=== PATIENT | male | born 1935 | race Caucasian/White ===

== ENCOUNTER → 2018-03-16 | Outpatient (CLI) | payer MEDICARE ==
[~2018-03-16] MED LIST: HYDACE5 PO
== END | disposition home or self-care (01) ==
LOC: LAB SHORT 10:26 → PLD 10:26
DX: D48.5 Neoplasm of uncertain behavior of skin (principal)
CPT/HCPCS: 88305

== ENCOUNTER → 2019-03-17 | Outpatient (CLI) | payer MEDICARE | END | disposition home or self-care (01) | LOC: LAB SHORT 09:31 → OLS 09:31 | DX: D48.5 Neoplasm of uncertain behavior of skin (principal) | CPT/HCPCS: 88305 ==

== ENCOUNTER → 2019-10-06 | Outpatient (CLI) | payer MEDICARE | END | disposition home or self-care (01) | LOC: PLD 11:36 → LAB SHORT 11:36 | DX: D48.5 Neoplasm of uncertain behavior of skin (principal) | CPT/HCPCS: 88305 ==

== ENCOUNTER → 2021-01-03 | Outpatient (CLI) | payer MEDICARE | END | disposition home or self-care (01) | LOC: LAB 08:57 → LAB SHORT 08:57 | DX: D48.5 Neoplasm of uncertain behavior of skin (principal) | CPT/HCPCS: 88305 ==

== ENCOUNTER 2021-06-07 20:22 | Inpatient (IN) | payer OTHER, MEDICARE ==
[~2021-06-07] VITALS: Ht 170.2 cm; Wt 72.6 kg
[2021-06-07] MEDS ORDERED: PROB500 PO ×2 (20:59)
[2021-06-07 21:14] LABS: BASOPHILS ABSOLUTE AUTO 0.07 K/mm3 (0.00-0.23); BASOPHILS PERCENT AUTO 1 % (0-2); EOSINOPHILS PERCENT AUTO 1 % (0-6); Hemoglobin 12.9 g/dL (13.5-17.5); IMMATURE GRAN ABSOLUTE AUTO 0.42 K/mm3 (0.00-0.10); IMMATURE GRAN PERCENT AUTO 4 % (0-1); LYMPHOCYTES ABSOLUTE AUTO 2.79 K/mm3 (0.84-5.20); LYMPHOCYTES PERCENT AUTO 25 % (21-46); MONOCYTES ABSOLUTE AUTO 1.05 K/mm3 (0.16-1.47); MONOCYTES PERCENT AUTO 9 % (4-13); Mean Corpuscular HGB 31.6 pg (26.0-34.0); Mean Corpuscular HGB Conc 33.1 g/dL (31.5-36.5); Mean Corpuscular Volume 96 fL (80-100); Mean Platelet Volume 10.4 fL (9.1-12.4); NEUTROPHILS ABSOLUTE AUTO 6.75 K/mm3 (1.96-9.15); NEUTROPHILS PERCENT AUTO 60 % (41-73); Platelet Count 201 K/mm3 (150-400); RDW Coefficient Variation 12.9 % (11.7-14.2); RDW Standard Deviation 45.2 fL (35.1-46.3); Red Blood Cell Count 4.08 M/mm3 (4.30-5.90); White Blood Cell Count 11.18 K/mm3 (4.00-11.30)
[2021-06-07 21:21] LABS: Anion Gap 11 mmol/L (6-16); Blood Urea Nitrogen 12 mg/dL (8-24); Bun/Creatinine Ratio 11.3 (12.0-20.0); CO2, Blood 24 mmol/L (21-32); Chloride, Blood 103 mmol/L (98-108); Creatinine, Blood 1.06 mg/dL (0.60-1.20); Glomerular Filtration Rate >60 (60-); Glucose, Blood 99 mg/dL (70-99); Potassium, Blood 3.8 mmol/L (3.5-5.5); Sodium, Blood 138 mmol/L (136-145)
[2021-06-07 21:59] LABS: Influenza A, PCR NEGATIVE (NEGATIVE); Influenza B, PCR NEGATIVE (NEGATIVE); Resp Syncytial Virus, PCR NEGATIVE (NEGATIVE); SARS-Cov-2 (COVID-19) PCR, MMC NEGATIVE (NEGATIVE)
--- NOTE | 2021-06-08 03:32 | NUR ---
PT ADMITTED TO 223 FROM THE ED. PT A/OX4, VSS. BELONGINGS AT BEDSIDE. BED LOCKED, ALARM ON AND IN LOWEST POSITION. CALL LIGHT AND BEDSIDE TABLE WITHIN REACH. WCTM
[2021-06-08] MEDS ORDERED: FINA5 PO (06:27)
[2021-06-08] MEDS ORDERED: Calcium Carbon500 MG PO (08:48)
--- NOTE | 2021-06-08 17:06 | NUR ---
pthas declined offers of pain medication reports he doesnt have pain unless he moves. pt will be npo after midnight for surgery in am. pt states he will drink fluids but declines any food as he does not want to use a bedpan. left leg shortened and externally rotated with sensation and pulses intact, pt able to wiggle toes when asked to do so. capillary refill less than 3 seconds
--- NOTE | 2021-06-08 18:29 | NUR ---
1814 RESTLESS, UNDRESSING SELF STATES NEEDS HELP TO STAND UP SO HE Cn get dressed and go home. pt oreinted to self. pt cursing and striking out when attempted to reposition. pt moved to room 213 for closer observation, pt medicated with fentanyl for pain
--- NOTE | 2021-06-08 18:59 | NUR ---
pt called on telephone confused asking his to bring him clothes and get him out of here. i spoke with patients to update her on patients status. discussed with that surgery is planned for 1000 tomorrow. pts given our contact phone number
--- NOTE | 2021-06-08 22:50 | NUR ---
PT CONFUSED AT START OF SHIFT. A/OX3 WITH SHORT TERM MEMORY LOSS. PT TRYING TO GET OUT OF BED. ANNETTE BYNUM CALLED AND ORDERED X1 DOSE OF HALDOL. PT NOW RESTING. PT NPO SINCE ADMISSION FOR POSSIBLE SURGERY. RESTING HR 110-120. ANNETTE BYNUM MADE AWARE AND ORDERED FLUIDS. ADMINISTERED TO PT. WCTM
--- NOTE | 2021-06-09 00:08 | NUR ---
PT AGITATED AT THIS TIME. A/OX1. HOUSE DR MADE AWARE. ORDERS FOR X1 DOSE OF ZYPREXA. WILL ADMINISTER TO PT. SEE EMAR. ALSO ORDERS TO BS PT ONCE SEDATED AND TO SC >400.
--- NOTE | 2021-06-09 01:55 | NUR ---
PT A/OX1. PT REMOVED IV. AGITATED AND REFUSING NEW IV PLACEMENT. UNABLE TO INFUSE LR AT THIS TIME. BS IS NOT >400.
[2021-06-09 04:58] LABS: BASOPHILS ABSOLUTE AUTO 0.06 K/mm3 (0.00-0.23); BASOPHILS PERCENT AUTO 0 % (0-2); EOSINOPHILS ABSOLUTE AUTO 0.01 K/mm3 (0.00-0.68); EOSINOPHILS PERCENT AUTO 0 % (0-6); Hematocrit 41.2 % (37.0-53.0); Hemoglobin 13.7 g/dL (13.5-17.5); IMMATURE GRAN PERCENT AUTO 2 % (0-1); LYMPHOCYTES ABSOLUTE AUTO 1.68 K/mm3 (0.84-5.20); LYMPHOCYTES PERCENT AUTO 12 % (21-46); MONOCYTES PERCENT AUTO 11 % (4-13); Mean Corpuscular HGB 31.6 pg (26.0-34.0); Mean Corpuscular HGB Conc 33.3 g/dL (31.5-36.5); Mean Corpuscular Volume 95 fL (80-100); Mean Platelet Volume 10.2 fL (9.1-12.4); NEUTROPHILS ABSOLUTE AUTO 10.64 K/mm3 (1.96-9.15); NEUTROPHILS PERCENT AUTO 74 % (41-73); Platelet Count 159 K/mm3 (150-400); RDW Coefficient Variation 12.9 % (11.7-14.2); RDW Standard Deviation 45.5 fL (35.1-46.3); Red Blood Cell Count 4.34 M/mm3 (4.30-5.90); White Blood Cell Count 14.29 K/mm3 (4.00-11.30)
[2021-06-09 05:38] LABS: Albumin, Blood 2.7 g/dL (3.4-5.0); Anion Gap 9 mmol/L (6-16); Blood Urea Nitrogen 17 mg/dL (8-24); Bun/Creatinine Ratio 18.5 (12.0-20.0); CO2, Blood 25 mmol/L (21-32); Calcium, Blood 9.3 mg/dL (8.5-10.1); Chloride, Blood 103 mmol/L (98-108); Creatinine, Blood 0.92 mg/dL (0.60-1.20); Glomerular Filtration Rate >60 (60-); Glucose, Blood 115 mg/dL (70-99); Phosphorus, Blood 2.7 mg/dL (2.5-4.9); Potassium, Blood 4.5 mmol/L (3.5-5.5); Sodium, Blood 137 mmol/L (136-145)
--- NOTE | 2021-06-09 05:50 | NUR ---
PATIENT BS 418. SC FOR 350CC'S IS DARK YELLOW URINE. PATIENT COMFORTABLE IN BED AT THIS TIME. TM
--- NOTE | 2021-06-09 13:01 | NUR ---
RETURN FROM PACU PATIENT RETURNED TO ROOM AT 1230 FROM PACU. DROWSY BUT RESPONDS TO VERBAL STIMULATION WITH ANGERY SHOUT. PUSHES NURSE AWAY. GRIMACE WITH EYES SHUT. VSS WITH O2 VIA NC AT 3L. THICK MUCUS IN UPPER AIRWAY. SUCTIONING PRN. IV FLUIDS RUNNING. 3 GAUZE DRESSINGS TO LEFT HIP. PEDAL PULSES STRONG BILAT. SPOUSE IN ROOM. PATIENT RESTING AT THIS TIME.
--- NOTE | 2021-06-09 17:07 | NUR ---
SHIFT SUMMARY PATIENT CONFUSED, ANXIOUS, AND HALLUCINATING AT BEGINNING OF SHIFT. WENT FOR SURGICAL REPAIR OF LEFT HIP FRACTURE WITH DR SANTOS. RETURNED TO ROOM AT 1230. SLEPT ALL AFTERNOON WITH OCC WAKEFULNESS TO VERBAL STIMULATION. VSS WITH SOMEWHAT LOW BP SYSTOLIC ABOUT 100. SUPP O2 VIA NC AT 3L. THICK MUCUS IN UPPER AIRWAY AND MOUTH, SUCTIONING PRN. NOT AWAKE ENOUGH FOR PO INTAKE. REPOSITIONED IN BED. 3 GAUZE DRESSING C/D/I TO LEFT HIP. ATTENDS DRY AT THIS TIME. IV FLUIDS AND ABX RUNNING. RESTING IN BED AT THIS TIME. WILL REPORT TO CERTIFIED RETINAL ANGIOGRAPHER RN.
--- NOTE | 2021-06-10 06:11 | NUR ---
PATIENT ALERT ABLE TO ANSWER QUESTIONS. TOLERATED PO FLUIDS AT BEDSIDE. CIWA RATING #3. HAD LARGE VOID, BLADDER SCANNED FOR 138. SLEPT WELL THROUGH NIGHT. DENIES PAIN OR DISCOMFORT. DRSSING TO LEFT HIP CLEAN DRY AND INTACT, SAFETY MAINTAINED.
[2021-06-10 09:25] LABS: BASOPHILS ABSOLUTE AUTO 0.03 K/mm3 (0.00-0.23); BASOPHILS PERCENT AUTO 0 % (0-2); EOSINOPHILS ABSOLUTE AUTO 0.02 K/mm3 (0.00-0.68); EOSINOPHILS PERCENT AUTO 0 % (0-6); Hemoglobin 9.4 g/dL (13.5-17.5); IMMATURE GRAN ABSOLUTE AUTO 0.36 K/mm3 (0.00-0.10); IMMATURE GRAN PERCENT AUTO 3 % (0-1); LYMPHOCYTES ABSOLUTE AUTO 1.37 K/mm3 (0.84-5.20); LYMPHOCYTES PERCENT AUTO 11 % (21-46); MONOCYTES ABSOLUTE AUTO 1.52 K/mm3 (0.16-1.47); MONOCYTES PERCENT AUTO 12 % (4-13); Mean Corpuscular HGB 32.2 pg (26.0-34.0); Mean Corpuscular HGB Conc 33.6 g/dL (31.5-36.5); Mean Corpuscular Volume 96 fL (80-100); Mean Platelet Volume 10.3 fL (9.1-12.4); NEUTROPHILS ABSOLUTE AUTO 9.39 K/mm3 (1.96-9.15); NEUTROPHILS PERCENT AUTO 74 % (41-73); Platelet Count 155 K/mm3 (150-400); RDW Coefficient Variation 13.2 % (11.7-14.2); RDW Standard Deviation 46.7 fL (35.1-46.3); Red Blood Cell Count 2.92 M/mm3 (4.30-5.90); White Blood Cell Count 12.69 K/mm3 (4.00-11.30)
[2021-06-10 09:34] LABS: Anion Gap 4 mmol/L (6-16); Blood Urea Nitrogen 24 mg/dL (8-24); Bun/Creatinine Ratio 23.3 (12.0-20.0); CO2, Blood 30 mmol/L (21-32); Calcium, Blood 8.7 mg/dL (8.5-10.1); Chloride, Blood 107 mmol/L (98-108); Creatinine, Blood 1.03 mg/dL (0.60-1.20); Glomerular Filtration Rate >60 (60-); Glucose, Blood 124 mg/dL (70-99); Phosphorus, Blood 3.2 mg/dL (2.5-4.9); Potassium, Blood 4.4 mmol/L (3.5-5.5); Sodium, Blood 141 mmol/L (136-145)
--- NOTE | 2021-06-10 10:11 | NUR ---
PT WILL DESAT WHILE SLEEPING DOWN INTO THE 80'S. HE RECOVERS ONCE AWAKENED AND STAYS IN THE MID 90'S ON ROOM AIR. PT FINALLY ALLOWED THIS RN TO PLACE NASAL CANULA HE HAD BEEN REFUSING EARLIER. NOTIFIED DR. ALVARADO. SHE WOULD LIKE HIM ON A CPAP WHILE SLEEPING IF HE ALLOWS. REFUSED AM MEDS THIS MORNING. CURRENTLY ON 2L NASAL CANULA SATS REMAINING IN THE 90'S WITH NO DESATS.
--- NOTE | 2021-06-10 11:58 | NUR ---
PT UP TO CHAIR WITH 2 MAX ASSIST PT UNABLE TO FOLLOW DIRECTIONS WITH TRANSFER AND NWB STATUS. ATTEMPTED TO EDUCATE ON WALKER USE. AT BEDSIDE.
--- NOTE | 2021-06-10 17:55 | NUR ---
SHIFT SUMMARY. PT MORE ALERT AND ORIENTED X4 THIS AFTERNOON AFTER GETTING UP INTO THE CHAIR. ABLE TO REMEMBER STAFF NAMES, LOCATION AND DATE. PLEASANT AND COOPERATIVE. VERY WEAK WITH TRANSFERS, REQUIRES 2 MAX FROM CHAIR TO BED. DIFFICULT TO CHIEF MATE IN WALKER USE. USING CALL LIGHT APPROPRIATLY, CONTINENT OF VOID IN URINAL. PLAN WILL BE TO CONTINUE WORKING WITH PT/OT
--- NOTE | 2021-06-10 20:57 | NUR ---
PT A/O X4, VSS. NO IV NOTED UPON ASSESSMENT. PT REFUSING NEW IV PLACEMENT. PT EDUCATED THAT IV'S ARE IMPORTANT AND NEEDED IN CASE OF AN EMERGENCY. PT STILL REFUSING AT THIS TIME. WILL PASS ONTO NEXT RN.
--- NOTE | 2021-06-11 04:29 | NUR ---
SHIFT SUMMARY PT A/OX4 WITH TIMES OF FORGETFULNESS. VSS. BM SMEAR X1 IN BRIEF. BLANCHABLE REDNESS TO COCCYX. MEPILEX APPLIED. Q2 TURNS. PT STILL REFUSING NEW IV PLACEMENT AT THIS TIME. 2L NC, + FOR COUGH, EDUCTATED ON IMPORTANCE OF IS USAGE TO DECREASE CHANCE OF PNEUMONIA. AQUACEL TO L HIP C/D/I. WCTM
[2021-06-11 08:37] LABS: BASOPHILS ABSOLUTE AUTO 0.04 K/mm3 (0.00-0.23); BASOPHILS PERCENT AUTO 0 % (0-2); EOSINOPHILS ABSOLUTE AUTO 0.16 K/mm3 (0.00-0.68); EOSINOPHILS PERCENT AUTO 2 % (0-6); Hematocrit 25.7 % (37.0-53.0); Hemoglobin 8.4 g/dL (13.5-17.5); IMMATURE GRAN ABSOLUTE AUTO 0.35 K/mm3 (0.00-0.10); IMMATURE GRAN PERCENT AUTO 4 % (0-1); LYMPHOCYTES ABSOLUTE AUTO 1.75 K/mm3 (0.84-5.20); LYMPHOCYTES PERCENT AUTO 18 % (21-46); MONOCYTES ABSOLUTE AUTO 1.01 K/mm3 (0.16-1.47); MONOCYTES PERCENT AUTO 11 % (4-13); Mean Corpuscular HGB 32.1 pg (26.0-34.0); Mean Corpuscular HGB Conc 32.7 g/dL (31.5-36.5); Mean Corpuscular Volume 98 fL (80-100); Mean Platelet Volume 10.5 fL (9.1-12.4); NEUTROPHILS ABSOLUTE AUTO 6.26 K/mm3 (1.96-9.15); NEUTROPHILS PERCENT AUTO 65 % (41-73); Platelet Count 141 K/mm3 (150-400); RDW Coefficient Variation 13.3 % (11.7-14.2); RDW Standard Deviation 47.3 fL (35.1-46.3); Red Blood Cell Count 2.62 M/mm3 (4.30-5.90); White Blood Cell Count 9.57 K/mm3 (4.00-11.30)
[2021-06-11 09:48] LABS: Anion Gap 5 mmol/L (6-16); Blood Urea Nitrogen 24 mg/dL (8-24); Bun/Creatinine Ratio 23.1 (12.0-20.0); CO2, Blood 31 mmol/L (21-32); Calcium, Blood 8.6 mg/dL (8.5-10.1); Chloride, Blood 107 mmol/L (98-108); Creatinine, Blood 1.04 mg/dL (0.60-1.20); Glomerular Filtration Rate >60 (60-); Glucose, Blood 95 mg/dL (70-99); Phosphorus, Blood 2.5 mg/dL (2.5-4.9); Potassium, Blood 4.2 mmol/L (3.5-5.5); Sodium, Blood 143 mmol/L (136-145)
--- NOTE | 2021-06-11 17:19 | NUR ---
SHIFT SUMMARY PT IS POD#2 FROM L HIP REPAIR. PT IS ALERT AND ORIENTED TODAY. PAIN MANAGED WITH TYLENOL AND ULTRAM. PT REPORTED FEELING CONFUSED AFTER TAKING ULTRAM, CONFUSION WAS NOT OBSERVED BY STAFF. PT IS A 2 ASSIST WITH GAIT BELT AND WALKER FOR TRANSFERS. FAMILY PRESENT FOR SUPPORT TODAY. POSSIBLE DISCHARGE TO [facility] TOMORROW. VSS. WILL MONITOR UNTIL REPORT TO YOVANNY RN.
--- NOTE | 2021-06-12 04:09 | NUR ---
SHIFT SUMMARY PT A/O X4, VSS. VOIDING WITHOUT COMPLICATION. Q2 TURNS. MEPILEX TO COCCYX C/D/I. AQUACEL TO HIP WITH LITTLE SHADOWING. PAIN CONTROLLED WITH ORAL MEDICATIONS. WCTM
--- NOTE | 2021-06-12 05:18 | NUR ---
ROUGHLY AT 0445 PT A/OX1, FOUND REMOVING LINES AND GOWN. CIWA 13. REFUSING VITALS. MEDICAITONS GIVEN PER EMAR. PT NOW RESTING IN BED, A/OX3. REPOSITIONED. VSS. WILL REASSESS CIWA SCORE. WCTM
--- NOTE | 2021-06-12 14:31 | NUR ---
06/12/21 1431 Eileen Gomez VERIFICATIONS: EDIT CHART.
--- NOTE | 2021-06-12 18:37 | NUR ---
SHIFT SUMMARY PT POD #2 FOR L HIP RODDING. PT VERY TIRED THIS SHIFT AND DID NOT WAKE UP UNTIL LATE AFTERNOON. UNABLE TO TAKE MORNING MEDICATIONS DUE TO NOT BEING ABLE TO STAY AWAKE. WORKED WITH PHYSICAL THERAPY AND UP WITH A 2 MAX ASSIST TO THE CHAIR. PT IS A VERY HEAVY LIFT. AQUACEL DRESSING CDI. WILL REPORT TO YOVANNY PARRA.
--- NOTE | 2021-06-13 06:49 | NUR ---
Pt ramains in bed throughout the night and is resting comfortably. Denies pain or discomfort. He is alert and oriented, medictaed as indicated. Assisted with care and ADLs, assisted with bathroom and toileting needs, assisted with positioning to enhance comfort. Dry surgical on left hip at the incision site is patent. Pt was given his call mcknight and encouraged to call for help when assistance is needed as he is monitored.
[2021-06-13 09:28] LABS: Albumin, Blood 2.3 g/dL (3.4-5.0); Anion Gap 8 mmol/L (6-16); Blood Urea Nitrogen 25 mg/dL (8-24); Bun/Creatinine Ratio 23.8 (12.0-20.0); CO2, Blood 30 mmol/L (21-32); Calcium, Blood 8.9 mg/dL (8.5-10.1); Chloride, Blood 103 mmol/L (98-108); Creatinine, Blood 1.05 mg/dL (0.60-1.20); Glomerular Filtration Rate >60 (60-); Glucose, Blood 122 mg/dL (70-99); Magnesium, Blood 1.9 mg/dL (1.6-2.4); Phosphorus, Blood 3.8 mg/dL (2.5-4.9); Potassium, Blood 4.1 mmol/L (3.5-5.5); Sodium, Blood 141 mmol/L (136-145)
[2021-06-13 10:09] LABS: Hematocrit 28.4 % (37.0-53.0); Hemoglobin 9.1 g/dL (13.5-17.5); Mean Corpuscular HGB 31.8 pg (26.0-34.0); Mean Corpuscular Volume 99 fL (80-100); Mean Platelet Volume 10.7 fL (9.1-12.4); Platelet Count 200 K/mm3 (150-400); RDW Coefficient Variation 13.2 % (11.7-14.2); RDW Standard Deviation 48.4 fL (35.1-46.3); Red Blood Cell Count 2.86 M/mm3 (4.30-5.90); White Blood Cell Count 9.06 K/mm3 (4.00-11.30)
[2021-06-13 10:14] LABS: BAND PERCENT MAN 2 % (0-8); BASOPHILS PERCENT MAN 0 % (0-2); EOSINOPHILS PERCENT MAN 0 % (0-6); LYMPHOCYTES ABSOLUTE MAN 2.08 K/mm3 (0.84-5.20); LYMPHOCYTES PERCENT MAN 23 % (21-46); METAMYELOCYTE ABSOLUTE MAN 0.27 K/mm3 (0.00-0.00); METAMYELOCYTE PERCENT MAN 3 % (0-0); MONOCYTES ABSOLUTE MAN 0.72 K/mm3 (0.16-1.47); MONOCYTES PERCENT MAN 8 % (4-13); MYELOCYTE ABSOLUTE MAN 0.27 K/mm3 (0.00-0.00); MYELOCYTE PERCENT MAN 3 % (0-0); SEG NEUTROPHILS PERCENT MAN 61 % (41-73); TOTAL CELLS COUNTED 100
--- NOTE | 2021-06-14 06:45 | NUR ---
PT IN BED AND IS RESTING IN STABLE CONDITION, NO PAIN, NO DISCOMFORT. ASSISTED WITH CARE AND ADLS, MEDICATED INDICATED. CALL MACKAY GIVEN TO HIM AND ENCOURAGED TO CALL FOR HELP WHEN ASSISTANCE IS NEEDED.
--- NOTE | 2021-06-14 15:41 | NUR ---
SHIFT SUMMARY PATIENT AOX4; VSS, PATIENT UP WITH MAX ASSIST X2 FROM BED TO COMMODE. PATIENT HAD SMALL BM ON SHIFT, GOOD U/O. TOLERATING PO INTAKE. PATIENT DENIES PAIN AND DOES NOT REQUIRE PRN PAIN MEDICATION.
--- NOTE | 2021-06-15 04:27 | NUR ---
SHIFT SUMMARY PT A/OX4, VSS. NO ACUTE EVENTS OVERNIGHT. L HIP AQUACELS INTACT WITH OLD SHADOWING. NO PAIN PER PATIENT.
--- NOTE | 2021-06-15 15:53 | NUR ---
SHIFT SUMMARY PT A&OX4, VSS/RA. AMB 1 PP MOD ASSIST WITH FWW/GB-UP IN ROOM WITH PT/OT, TO BSC. DECLAN PO. VOIDING WELL/URINAL, BM LARGE THIS SHIFT. POD6 LLE GAMMA NAIL, AQUACEL CHANGED TODAY. MEPILEX ON COCCYX CHANGED TODAY. WILL REPORT TO ONCOMING NOC RN.
--- NOTE | 2021-06-16 05:33 | NUR ---
ALERT AND ORIENTED X'4. CALM AND COOPERATIVE THROUGH NIGHT,DENIES PAIN OR DISCOMFORT. AQUACEL DRESSINGS CLEAN DRY AND INTACT TO LEFT HIP. 2 ASSIST FOR TRANSFERS WITH WALKER.INCONTINENT EPISODE OF BOWEL THIS AM. SLEPT IN LONG INTERVALS. SAFETY MAINTAINED, CALL MACKAY IN REACH.
--- NOTE | 2021-06-16 19:43 | NUR ---
SHIFT SUMMARY PAIN MANAGED WITH TYLENOL. PT HAS WORKED WITH THERAPY TODAY AND WAS ABLE TO TAKE SOME STEPS. PT IS MOSTLY A STAND AND PIVOT TRANSFER WITH 1-2 ASSIST. PT IS TOLERATING PO. PLAN FOR DISCHARGE TO SNF WHEN A BED IS AVALIABLE. VSS. WILL MONITOR UNTIL REPORT TO YOVANNY RN.
--- NOTE | 2021-06-17 05:15 | NUR ---
PT REMAINS ALERT AND ORIENTED X4, STARTLES EASILY, MAKES NO COMPLAINTS OF PAIN ALTHOUGH TREATED PER EMAR WITH SCHEDULED TYLENOL. L HIP DRESSING CDI. PT USES URINAL, CALLS APPROPRIATELY AND SLEPT MOST OF THE NIGHT. NO ACUTE CHANGES TO REPORT. WILL CONT TO MONITOR.
--- NOTE | 2021-06-17 18:05 | NUR ---
SHIFT SUMMARY PT IS WAITING FOR PLACMENT AT SNF, POSSIBLY TOMORROW. PT IS A 1 PERSON ASSIST WITH GAIT BELT AND WALKER FOR STAND PIVOT TRANSFERS. PAIN IS MANAGED WITH TYLENOL, PT DESCRIBES PAIN MILD AND STATES HIS L HIP IS "SORE." PT'S SPOUSE VISITED THIS EVENING. PT'S REPORTS DECREASED APPETITE BUT IS EATING APPROXIMATELY 50% OF HIS MEALS. VSS. WILL MONITOR UNTIL NOC FIDEL.
--- NOTE | 2021-06-18 05:22 | NUR ---
SHIFT SUMMARY POD8 L HIP FIXATION, AQUACEL X2 C/D/I. VSS. STAND BY ASSIST WITH FWW AND GB FROM CHAIR TO BED. RESTING COMFORTABLY THIS SHIFT, NO PAIN MEDICATIONS GIVEN. VOIDING WELL. WILL REPORT TO ONCOMING RN.
--- NOTE | 2021-06-18 17:49 | NUR ---
SHIFT SUMMARY PT A&OX4, VSS, POD9 LLE NAILING, JEFFERSON REMOVED TODAY, [address] SANTOS. DENIES PAIN. DENIES N&V/DECLAN PO, AMB SBA FWW & GB TO BSC/CHAIR/BED, VOIDING WELL, BM. PLAN FOR HOME WITH HOMEHEALTH, DC TOMORROW. WILL REPORT TO ONCJUSTEN HAIRSTON RN.
--- NOTE | 2021-06-19 03:49 | NUR ---
SHIFT SUMMARY A/OX3. RESTING WELL THIS SHIFT. POD9 L HIP ARTHROPLASTY, STERI STRIPS OVER INCISIONS C/D/I. AMBULATING WELL WITH FWW. NO PAIN REPORTED THIS SHIFT. VOIDING AND PASSING STOOL. TOLERATING PO INTAKE. PLAN TO DC HOME TODAY WITH HOME HEALTH. WILL REPORT TO ONCOMING RN.
[2021-06-19] MEDS ORDERED: QUET25 PO (11:36)
[2021-06-19] MEDS ORDERED: TRAM50 PO (11:37)
[2021-06-19] MEDS ORDERED: XARELTO10 M1 PO (12:49)
[2021-06-19] MEDS ORDERED: OMEPRAZOLE MAGN20 M1 PO (12:52)
--- NOTE | 2021-06-19 16:17 | NUR ---
Received referral from nurse career services manager (Porsche Sierra) on 06/19/2021. Patient is to discharge 06/19/2021 with orders for home health and elected [facility]. Contacted patient at number provided on demographic sheet to further discuss the above. Spoke with patient's (Frederick Tejada) who is agreeable to the above. Discussed homebound status definition with patient's . Patient's verbalized understanding. Discussed what home health is vs what it is not (in home caregivers/housekeeping). Patient's verbalized understanding. Discussed the next steps in the process of an initial assessment to determine frequency of visits. Again patient's verbalized understanding. Offered a chance for patient's to ask questions regarding the above of which there were none. Gathered all supporting documentation for referral (face sheet, face to face, med list, H&P, discharge summary, and most recent PT assessment) and sent to [facility] for review. No further interventions required. Edie Gordon Referral Liaison
--- NOTE | 2021-06-19 16:28 | NUR ---
DISCHARGE SUMMARY BROTH SETTER&OX4, VSS, LEFT FLOOR VIA WC WITH RN, TO GO HOME WITH AND DAUGHTER, WITH ALL PERSONAL POSSESSIONS INCLUDING DC PACKET. SCRIPTS FAXED TO [facility]. DC INSTRUCTIONS PROVIDED. PT AND FAMILY REP UNDERSTANDING THOSE INSTRUCTIONS INCLUDING HOME HEALTH/PT, FU WITH PCP AND SURGEON, OK TO SHOWER, LEAVE STERIS IN PLACE UNTIL THEY COME OFF ON THEIR OWN, XARELTO FOR 21 DAYS(START TOMORROW) AND CONTACT NUMBERS FOR DOCTORS AND RESOURCES.
== END 2021-06-19 14:00 | disposition home health service (06) | DRG 480 ==
LOC: ER 20:22 → SURS 20:23
PROVIDERS: Family Medicine; Orthopaedic Surgery; Student in an Organized Health Care Education/Training Program; ADMIT Internal Medicine
PROC: 0QS736Z Reposition Left Upper Femur with Intramedullary Internal Fixation Device, Percutaneous Approach (ICD-10-PCS; principal; 2021-06-09 09:45)
DX: S72.142A Displaced intertrochanteric fracture of left femur, initial encounter for closed fracture (principal); G92.8 Other toxic encephalopathy; Z20.822 Contact with and (suspected) exposure to COVID-19; D72.829 Elevated white blood cell count, unspecified; D63.8 Anemia in other chronic diseases classified elsewhere; K21.9 Gastro-esophageal reflux disease without esophagitis; F10.10 Alcohol abuse, uncomplicated; Z28.21 Immunization not carried out because of patient refusal; M10.9 Gout, unspecified; N40.0 Benign prostatic hyperplasia without lower urinary tract symptoms; Z88.0 Allergy status to penicillin; Z91.09 Other allergy status, other than to drugs and biological substances; Z79.899 Other long term (current) drug therapy; Z98.890 Other specified postprocedural states; Z90.49 Acquired absence of other specified parts of digestive tract; Z90.89 Acquired absence of other organs; W01.0XXA Fall on same level from slipping, tripping and stumbling without subsequent striking against object, initial encounter
CPT/HCPCS: 0241U; 36415; 73502; 80048; 80069; 83735; 85025; 93005; 93010; 94762; 96372; 96374; 96375; 97110; 97110-CQ; 97116; 97163; 97166; 97530; 97530-CQ; 97535; 99285-25; A9270; C1713; C9113; G0378; J0171; J0690; J1100; J1630; J1885; J2060; J2250; J2405; J2704; J3010; J7120

== ENCOUNTER 2022-03-16 12:29 | Inpatient (IN) | payer MEDICARE ==
[~2022-03-16] VITALS: Ht 167.6 cm; Wt 58.3 kg
[~2022-03-16 12:29] MED LIST changes: +Calcium Carbon500 MG PO; +FINA5 PO; +OMEPRAZOLE MAGN20 M1 PO; +PROB500 PO; +QUET25 PO; +TRAM50 PO; +XARELTO10 M1 PO
[2022-03-16 13:16] LABS: BASOPHILS ABSOLUTE AUTO 0.04 K/mm3 (0.00-0.23); BASOPHILS PERCENT AUTO 0 % (0-2); EOSINOPHILS ABSOLUTE AUTO 0.02 K/mm3 (0.00-0.68); EOSINOPHILS PERCENT AUTO 0 % (0-6); Hemoglobin 10.9 g/dL (13.5-17.5); IMMATURE GRAN ABSOLUTE AUTO 0.29 K/mm3 (0.00-0.10); IMMATURE GRAN PERCENT AUTO 2 % (0-1); LYMPHOCYTES ABSOLUTE AUTO 1.59 K/mm3 (0.84-5.20); LYMPHOCYTES PERCENT AUTO 11 % (21-46); MONOCYTES ABSOLUTE AUTO 1.19 K/mm3 (0.16-1.47); MONOCYTES PERCENT AUTO 9 % (4-13); Mean Corpuscular HGB 27.7 pg (26.0-34.0); Mean Corpuscular HGB Conc 31.1 g/dL (31.5-36.5); Mean Corpuscular Volume 89 fL (80-100); Mean Platelet Volume 10.2 fL (9.1-12.4); NEUTROPHILS PERCENT AUTO 78 % (41-73); Platelet Count 308 K/mm3 (150-400); RDW Coefficient Variation 13.2 % (11.7-14.2); RDW Standard Deviation 43.2 fL (35.1-46.3); Red Blood Cell Count 3.94 M/mm3 (4.30-5.90); White Blood Cell Count 13.93 K/mm3 (4.00-11.30)
[2022-03-16 13:21] LABS: Albumin, Blood 1.9 g/dL (3.4-5.0); Albumin/Globulin Ratio 0.4 (0.8-1.8); Bilirubin, Total 0.4 mg/dL (0.1-1.0); Bun/Creatinine Ratio 25.8 (12.0-20.0); Calcium, Blood 13.4 mg/dL (8.5-10.1); Creatinine, Blood 1.94 mg/dL (0.60-1.20); Globulin, Blood 5.1 g/dL (2.2-4.0); Potassium, Blood 4.3 mmol/L (3.5-5.5)
[2022-03-16 14:14] LABS: Magnesium, Blood 2.2 mg/dL (1.6-2.4)
--- NOTE | 2022-03-16 17:01 | NUR ---
Patient admitted for failure to thrive, poor PO intake & weight loss. Patient said he doesn't feel well, and doesn't want to eat. NC oxygen 2lpm, afebrile, vitals stable. Shallow respirations, lung sounds diminished RLL. SBAx1 when walking to the bathroom, patient needs directions on how to safely use FWW. MD assessed patient at bedside, discussed code status, patient requested to be DNR. Pulmonary consult ordered.
--- NOTE | 2022-03-17 04:19 | NUR ---
SHIFT SUMMARY 86 YR M ADMITTED ON 03/16/22 FOR FAILURE TO THRIVE. DNR. RT SAW PT AT APPROX 0100 AND STATED TO THIS NURSE THAT HE WAS DESATING TO 80'S WITH NASAL CANULA AND 2 LITERS 02. RT PUT IN AN ORDER FOR AND GAVE PT A BREATHING TX AFTER WHICH PT STATED THAT HE FELT BETTER. PT WAS ABLE TO SLEEP FOR MOST OF THIS SHIFT BUT DID CALL APPROPRIATELY AT LEAST TWICE ASKING FOR HELP W/ URINAL. HE IS A&O X 3 BUT APPEARS TO BE SLIGHTLY CONFUSED AT TIMES. HE IS A PLEASANT PERSON AND IS COOPERATIVE WITH HIS CARE.
[2022-03-17 06:02] LABS: BASOPHILS ABSOLUTE AUTO 0.05 K/mm3 (0.00-0.23); BASOPHILS PERCENT AUTO 0 % (0-2); EOSINOPHILS ABSOLUTE AUTO 0.03 K/mm3 (0.00-0.68); EOSINOPHILS PERCENT AUTO 0 % (0-6); Hematocrit 32.7 % (37.0-53.0); Hemoglobin 10.4 g/dL (13.5-17.5); IMMATURE GRAN PERCENT AUTO 2 % (0-1); LYMPHOCYTES ABSOLUTE AUTO 1.54 K/mm3 (0.84-5.20); LYMPHOCYTES PERCENT AUTO 12 % (21-46); MONOCYTES ABSOLUTE AUTO 1.13 K/mm3 (0.16-1.47); MONOCYTES PERCENT AUTO 9 % (4-13); Mean Corpuscular HGB 28.5 pg (26.0-34.0); Mean Corpuscular HGB Conc 31.8 g/dL (31.5-36.5); Mean Corpuscular Volume 90 fL (80-100); Mean Platelet Volume 10.5 fL (9.1-12.4); NEUTROPHILS PERCENT AUTO 76 % (41-73); Platelet Count 262 K/mm3 (150-400); RDW Coefficient Variation 13.3 % (11.7-14.2); RDW Standard Deviation 43.8 fL (35.1-46.3); Red Blood Cell Count 3.65 M/mm3 (4.30-5.90); White Blood Cell Count 12.55 K/mm3 (4.00-11.30)
[2022-03-17 06:31] LABS: Bun/Creatinine Ratio 24.6 (12.0-20.0); Calcium, Blood 12.4 mg/dL (8.5-10.1); Creatinine, Blood 1.83 mg/dL (0.60-1.20)
--- NOTE | 2022-03-17 17:38 | NUR ---
DAYSHIFT SUMMARY Patient AOx3, calls appropriately for help. Continues to have poor appetite, NS infusing. Patient removed NC several times today, provided education on importance of wearing oxygen. Molding Process Technician came and discussed Lung Cancer diagnosis with patient and family. Patient/family deciding if they want to pursue diagnostic testing. Serum Calcium is 12.4, Miacalcin injection administred. IV ABX administred. Vitals stable, afebrile, sats stable on 2L oxygen. Will continue to monitor.
--- NOTE | 2022-03-17 18:41 | NUR ---
Patient/family decided to have thorancentesis, RN notified Technology Professional. MD will be here tomorrow morning to discuss procedure with patient/family.
--- NOTE | 2022-03-17 19:15 | NUR ---
Assisted patient to BS, 2x staff assist with gaitbelt & FWW. Earlier today pateint used bathroom, but the grab bars are too high for patient to hold on to to stand up, pateint does not safely use walker, walks with the FWW too far infront of him. This evening used the bedside commode, patient had difficulty stand-pivoting to commode, he will turn the FWW but does not move his legs. Staff had to help guide patient to safely sit on commode.
--- NOTE | 2022-03-18 01:52 | NUR ---
SNOWMAKER SUMMARY PT AOX/3. PT RESTING IN BED T/O THE NIGHT. PATIENT NEEDED ENCOURAGMENT TO ALLOW FOR EVENING ASSESSMENT AND MED PASS WHICH INCLUDED INJECTION OF CALCITONIN FOR ELEVATED CALCIUM. PT IS ON 2L O2 VIA NC; PT HAS BEEN INTERMITTANTLY REFUSING TO WEAR NC DUE TO DISCOMFORT. PT STATES HE IS TIRED OF PROCEDURES; EXPRESSING HOPELESSNESS. PT SOB W/EXERTION. CALL LIGHT IN REACH.
[2022-03-18 04:47] LABS: BASOPHILS ABSOLUTE AUTO 0.06 K/mm3 (0.00-0.23); BASOPHILS PERCENT AUTO 0 % (0-2); EOSINOPHILS ABSOLUTE AUTO 0.02 K/mm3 (0.00-0.68); EOSINOPHILS PERCENT AUTO 0 % (0-6); Hematocrit 37.9 % (37.0-53.0); Hemoglobin 11.7 g/dL (13.5-17.5); IMMATURE GRAN ABSOLUTE AUTO 0.32 K/mm3 (0.00-0.10); IMMATURE GRAN PERCENT AUTO 2 % (0-1); LYMPHOCYTES ABSOLUTE AUTO 1.44 K/mm3 (0.84-5.20); LYMPHOCYTES PERCENT AUTO 9 % (21-46); MONOCYTES ABSOLUTE AUTO 1.12 K/mm3 (0.16-1.47); MONOCYTES PERCENT AUTO 7 % (4-13); Mean Corpuscular HGB 27.5 pg (26.0-34.0); Mean Corpuscular HGB Conc 30.9 g/dL (31.5-36.5); Mean Corpuscular Volume 89 fL (80-100); Mean Platelet Volume 10.2 fL (9.1-12.4); NEUTROPHILS ABSOLUTE AUTO 12.45 K/mm3 (1.96-9.15); NEUTROPHILS PERCENT AUTO 81 % (41-73); Platelet Count 303 K/mm3 (150-400); RDW Coefficient Variation 13.3 % (11.7-14.2); RDW Standard Deviation 43.2 fL (35.1-46.3); Red Blood Cell Count 4.25 M/mm3 (4.30-5.90); White Blood Cell Count 15.41 K/mm3 (4.00-11.30)
[2022-03-18 05:15] LABS: Albumin, Blood 1.9 g/dL (3.4-5.0); Anion Gap 5 mmol/L (6-16); Blood Urea Nitrogen 40 mg/dL (8-24); Bun/Creatinine Ratio 23.5 (12.0-20.0); CO2, Blood 30 mmol/L (21-32); Calcium, Blood 12.7 mg/dL (8.5-10.1); Chloride, Blood 106 mmol/L (98-108); Glomerular Filtration Rate 39 (60-); Glucose, Blood 120 mg/dL (70-99); Phosphorus, Blood 3.3 mg/dL (2.5-4.9); Potassium, Blood 4.1 mmol/L (3.5-5.5); Sodium, Blood 141 mmol/L (136-145); Vancomycin, Random 8.7 ug/mL
--- NOTE | 2022-03-18 11:09 | NUR ---
Upon receiving a referral for spiritual care, I visit pt. Pt is lying in bed and not deeply engaged in conversation. Family member (possibly pt's son), Ulisses is bedside. Ulisses tells me about the pt's symptoms and new diagnosis of lung cancer. Pt is agreeable to prayer. I gladly provide prayer. following the prayer. Pt becomes much more vocal and voices his gratitude for the prayer and asks that I remember him and his family in my prayers going forward. Both pt and Ulisses show signs of being comforted. I will continue to remain available to pt and family.
[2022-03-18 13:13] LABS: International Normalized Ratio 1.26
[2022-03-18 13:37] LABS: SARS-Cov-2 (COVID-19) PCR, MMC NEGATIVE (NEGATIVE)
[2022-03-18 15:26] LABS: Automated BF RBC Count 0.019 M/mm3 (0-0); Automated BF WBC Count 0.899 K/mm3 (0-999)
[2022-03-18 15:27] LABS: Body Fluid WBC Count 899 /mm3 (0-999); RBC Count, Body Fluid 19000 /mm3 (0-0)
[2022-03-18 15:41] LABS: Appearance, Body Fluid Hazy (Clear); Color, Body Fluid Amber (None-Yellow)
[2022-03-18 15:58] LABS: Glucose, Body Fluid 136 mg/dL; Lactate Dehydrogenase, Body Fl 181 U/L; Protein, Body Fluid 4.2 g/dL
[2022-03-18 16:24] LABS: Total Cell Count, Body Fluid 100
[2022-03-18 17:00] LABS: pH, Body Fluid 7.3
--- NOTE | 2022-03-18 17:32 | NUR ---
SHIFT SUMMARY PT DOZING ON AND OFF TODAY. FAMILY AT BEDSIDE THROUGHOUT DAY, VERY SUPPORTIVE OF PT AND ENCOURAGING HIM WITH EATING AND MOBILITY. THORACENTESIS COMPLETED WITH 1 LITER REMOVED. REPORTS BREATHING IS EASIER. HAS A COUGH WITH YELLOW SPUTUM PRODUCTION. 1-2 PERSON ASSIST USING FWW TO BSC. CURRENTLY IN RECLINER CHAIR.
--- NOTE | 2022-03-19 03:59 | NUR ---
SHIFT SUMMARY ADMITTED FOR HYPERCALCEMIA. DNR CODE. PNEUMONIA/SEPSIS, LUNG CANCER W/METS. 2 ASSIST W/FWW & GB. HE IS CONFUSED. HE YELLS OUT, DOES NOT USE CALL BUTTON. IV FLUIDS INFUSING ORDERED. 2 LPM O2 VIA NC. HE IS CONTINENT/INCONTINENT W/FREQUENCY. HE IS VERY WEAK IN LEGS. THORACENTESIS PERFORMED YESTERDAY. RESPIRATORY CONSULT IS DR. BORGES.
[2022-03-19 05:50] LABS: BASOPHILS ABSOLUTE AUTO 0.04 K/mm3 (0.00-0.23); BASOPHILS PERCENT AUTO 0 % (0-2); EOSINOPHILS ABSOLUTE AUTO 0.03 K/mm3 (0.00-0.68); EOSINOPHILS PERCENT AUTO 0 % (0-6); Hematocrit 34.8 % (37.0-53.0); Hemoglobin 10.9 g/dL (13.5-17.5); IMMATURE GRAN ABSOLUTE AUTO 0.28 K/mm3 (0.00-0.10); IMMATURE GRAN PERCENT AUTO 2 % (0-1); LYMPHOCYTES ABSOLUTE AUTO 1.31 K/mm3 (0.84-5.20); LYMPHOCYTES PERCENT AUTO 9 % (21-46); MONOCYTES ABSOLUTE AUTO 1.12 K/mm3 (0.16-1.47); MONOCYTES PERCENT AUTO 7 % (4-13); Mean Corpuscular HGB 27.9 pg (26.0-34.0); Mean Corpuscular HGB Conc 31.3 g/dL (31.5-36.5); Mean Corpuscular Volume 89 fL (80-100); Mean Platelet Volume 10.1 fL (9.1-12.4); NEUTROPHILS ABSOLUTE AUTO 12.42 K/mm3 (1.96-9.15); NEUTROPHILS PERCENT AUTO 82 % (41-73); Platelet Count 261 K/mm3 (150-400); RDW Coefficient Variation 13.5 % (11.7-14.2)
[2022-03-19 06:02] LABS: Albumin, Blood 1.7 g/dL (3.4-5.0); Anion Gap 6 mmol/L (6-16); Blood Urea Nitrogen 41 mg/dL (8-24); Bun/Creatinine Ratio 23.4 (12.0-20.0); CO2, Blood 28 mmol/L (21-32); Calcium, Blood 12.1 mg/dL (8.5-10.1); Chloride, Blood 111 mmol/L (98-108); Creatinine, Blood 1.75 mg/dL (0.60-1.20); Glomerular Filtration Rate 37 (60-); Glucose, Blood 113 mg/dL (70-99); Phosphorus, Blood 2.5 mg/dL (2.5-4.9); Potassium, Blood 4.1 mmol/L (3.5-5.5); Sodium, Blood 145 mmol/L (136-145); Vancomycin, Random 15.5 ug/mL
--- NOTE | 2022-03-19 11:20 | NUR ---
Initial Pal Care visit - Son resting his head against wall,eyes closed at bedside. He roused as soon as I entered the room. Pt lying supine, flat in bed. He did not wake during my 20 min visit. Resp labored, even, O2 in place via NC. Son states O2 deliverred to home in past two weeks due to ongoing hypoxia and pneumonia, found to be refractory due to Lung CA. Diagnositc and therapeutic thoracentesis performed yesterday. Son states pt reports improved pain, SOB and appetite since then. Son also reports pt has been able to rest and sleep better than he has in weeks, post thoracentesis. I did not wake or disturb pt. He appears to have furrowed brow and some frowning in sleep. Son states that is how his dad sleeps all the time. No restlessness noted in sleep. Pt lives with his and ranjeet is nearby per Son. Son also states grandchildren locally will be available to help. Son lives in [place] and has been here this week but will be heading home soon. Pt/family have decided upon hospice due to new Dx of advanced Lung CA. Talked son through what that will look like at home, DME recommended (hosp bed, BSC, overbed table, O2), visits to be made by hospice team and availability of nurses, ASSOCIATE MERCHANDISE PLANNER, SPANISH MEDICAL INTERPRETER, volunteers etc for intermittent visits. Discussed placement of hosp bed in the home. Pt's is in early 80's and in good health per Son. He verbalized understanding that she would need family or hired respite cg to manage pt's EOL care at home. Son states pt has become "sl fuzzy" but that he was more clear this am than in recent months. CM to review local hospice agencies with family today. Son states his mom is home sleeping/resting but will be in later today to talk with dc medical planner.
--- NOTE | 2022-03-19 19:41 | NUR ---
SHIFT SUMMARY PT DOZING ON AND OFF THROUGHOUT DAY. FAMILY AT BEDSIDE AND ASSISTING WITH CARE. TENTATIVE PLANS FOR HOME ON HOSPICE ON FRIDAY. KEEPS REMOVING HIS OXYGEN AND INSISTING ON KEEPING IT OFF. GETS MORE CONFUSED DAY PROGRESSES. REPORTS BREATHING IMPROVING. JUST "WANTS TO GO HOME".
--- NOTE | 2022-03-19 21:43 | NUR ---
PT IV WILL NOT FLUSH AND IV FLUIDS (NS@100) HAVE STOPPED. PT IS REFUSING TO LET ME REMOVE THE TEGADERM OVER IV SITE AND STATES THAT HE "IS DONE" AND THAT HE DOES NOT WANT ME TO "MESS" WITH HIM ANYMORE. HE BECAME VERY AGITATED WHEN I TRIED TO REMOVE THE TEGADERM AND TOLD ME TO "GET THE FUCK AWAY FROM HIM".
--- NOTE | 2022-03-20 04:41 | NUR ---
SHIFT SUMMARY 86 YR M ADMITTED ON 03/16/22. DNR. NO ACUTE CHANGES THIS SHIFT. RIGHT PERIPHERAL IV REMOVED IT WOULD NO LONGER FLUSH AND FLUIDS WERE NOT INFUSING. HE REFUSED TO HAVE ANOTHER IV INSERTED. HE HAS SLEPT FOR MOST OF THIS SHIFT BUT HAS TRIED TO GET UP TO GO TO THE BATHROOM AT LEAST TWICE W/O CALLING FOR HELP. HE STATES THE HE WANTS TO GO HOME AND HE GETS FRUSTRATED EASILY.
[2022-03-20 06:07] LABS: Albumin, Blood 1.6 g/dL (3.4-5.0); Anion Gap 9 mmol/L (6-16); Blood Urea Nitrogen 37 mg/dL (8-24); Bun/Creatinine Ratio 22.6 (12.0-20.0); CO2, Blood 21 mmol/L (21-32); Calcium, Blood 11.3 mg/dL (8.5-10.1); Chloride, Blood 114 mmol/L (98-108); Creatinine, Blood 1.64 mg/dL (0.60-1.20); Glomerular Filtration Rate 40 (60-); Glucose, Blood 76 mg/dL (70-99); Phosphorus, Blood 2.5 mg/dL (2.5-4.9); Sodium, Blood 144 mmol/L (136-145); Vancomycin, Random 17.3 ug/mL
[2022-03-20 06:18] LABS: BASOPHILS ABSOLUTE AUTO 0.04 K/mm3 (0.00-0.23); BASOPHILS PERCENT AUTO 0 % (0-2); EOSINOPHILS ABSOLUTE AUTO 0.02 K/mm3 (0.00-0.68); EOSINOPHILS PERCENT AUTO 0 % (0-6); Hematocrit 35.2 % (37.0-53.0); Hemoglobin 11.2 g/dL (13.5-17.5); IMMATURE GRAN ABSOLUTE AUTO 0.32 K/mm3 (0.00-0.10); IMMATURE GRAN PERCENT AUTO 2 % (0-1); LYMPHOCYTES ABSOLUTE AUTO 1.38 K/mm3 (0.84-5.20); LYMPHOCYTES PERCENT AUTO 10 % (21-46); MONOCYTES ABSOLUTE AUTO 0.98 K/mm3 (0.16-1.47); MONOCYTES PERCENT AUTO 7 % (4-13); Mean Corpuscular HGB 27.9 pg (26.0-34.0); Mean Corpuscular HGB Conc 31.8 g/dL (31.5-36.5); Mean Corpuscular Volume 88 fL (80-100); NEUTROPHILS ABSOLUTE AUTO 11.26 K/mm3 (1.96-9.15); NEUTROPHILS PERCENT AUTO 80 % (41-73); RDW Coefficient Variation 13.5 % (11.7-14.2); RDW Standard Deviation 43.8 fL (35.1-46.3); Red Blood Cell Count 4.02 M/mm3 (4.30-5.90)
[2022-03-20 06:26] LABS: Mean Platelet Volume 10.6 fL (9.1-12.4)
--- NOTE | 2022-03-20 19:55 | NUR ---
SHIFT SUMMARY 86-YEAR-OLD, A&O TO SELF AND FAMILY, DNR. PTN 1-2 ASSIST, VERY WEAK, USE OF FWW, GAIT BELT. BED ALARM AND CHAIR ALARM SET. UP TO CHAIR PART OF DAY. NEW PERIPHERAL IV PLACED TO L WRIST. CONTINUOUS NS AT 100 ML/HR. O2 ORDERED AT 2L, PTN NOT INTERESTED IN WEARING, WITH SATS REMAINING ABOVE 90. PTN CONTINENT, USE OF URINAL AND BEDSIDE COMMODE. REGULAR DIET. POSSIBLE DC HOME ON HOSPICE 03/21. CONTINUE TO MONITOR.
[2022-03-21 05:39] LABS: BASOPHILS ABSOLUTE AUTO 0.05 K/mm3 (0.00-0.23); BASOPHILS PERCENT AUTO 0 % (0-2); EOSINOPHILS ABSOLUTE AUTO 0.06 K/mm3 (0.00-0.68); EOSINOPHILS PERCENT AUTO 0 % (0-6); Hematocrit 34.2 % (37.0-53.0); Hemoglobin 10.5 g/dL (13.5-17.5); IMMATURE GRAN ABSOLUTE AUTO 0.35 K/mm3 (0.00-0.10); IMMATURE GRAN PERCENT AUTO 3 % (0-1); LYMPHOCYTES ABSOLUTE AUTO 1.44 K/mm3 (0.84-5.20); LYMPHOCYTES PERCENT AUTO 10 % (21-46); MONOCYTES ABSOLUTE AUTO 1.18 K/mm3 (0.16-1.47); MONOCYTES PERCENT AUTO 8 % (4-13); Mean Corpuscular HGB 27.5 pg (26.0-34.0); Mean Corpuscular HGB Conc 30.7 g/dL (31.5-36.5); Mean Corpuscular Volume 90 fL (80-100); Mean Platelet Volume 10.3 fL (9.1-12.4); NEUTROPHILS ABSOLUTE AUTO 11.14 K/mm3 (1.96-9.15); NEUTROPHILS PERCENT AUTO 78 % (41-73); Platelet Count 241 K/mm3 (150-400); RDW Coefficient Variation 13.9 % (11.7-14.2); RDW Standard Deviation 44.5 fL (35.1-46.3); Red Blood Cell Count 3.82 M/mm3 (4.30-5.90); White Blood Cell Count 14.22 K/mm3 (4.00-11.30)
--- NOTE | 2022-03-21 05:58 | NUR ---
FITNESS PLAN COORDINATOR SUMMARY PT RESTING COMFORTABLY THROUGHOUT THE SHIFT. IV NS RUNNING FOR SUPPLEMENTATION. PT CONFUSED AT NIGHT BUT HAS BEEN COOPERATIVE WITH CARE. HE DENIES ANY PAIN THIS SHIFT. USING URINAL IN BED WITH ASSISTANCE. PT DID NOT GET UP BUT BED ALARM IS IN PLACE. PLAN FOR DISCHARGE HOME ON HOSPICE TODAY.
[2022-03-21 06:06] LABS: Albumin, Blood 1.5 g/dL (3.4-5.0); Anion Gap 7 mmol/L (6-16); Blood Urea Nitrogen 37 mg/dL (8-24); CO2, Blood 24 mmol/L (21-32); Calcium, Blood 11.9 mg/dL (8.5-10.1); Chloride, Blood 113 mmol/L (98-108); Creatinine, Blood 1.54 mg/dL (0.60-1.20); Glomerular Filtration Rate 43 (60-); Glucose, Blood 104 mg/dL (70-99); Phosphorus, Blood 2.5 mg/dL (2.5-4.9); Potassium, Blood 4.1 mmol/L (3.5-5.5); Sodium, Blood 144 mmol/L (136-145); Vancomycin, Random 17.4 ug/mL
[2022-03-21] MEDS ORDERED: LEVFLO500 PO (08:44)
[2022-03-21] MEDS ORDERED: DOXY100 PO (08:44)
--- NOTE | 2022-03-21 11:57 | NUR ---
Spiritual care visit conducted. Pt is in d/c process and tells me that he is excited to go home. He tells me about his love for his family and his concern for them when he dies. He does not want them to have extra burdens. He brags about his son and two dtrs and then down the line to his 3 great grandsons who play football. I provide therapeutic listening, anticipatory grief support and prayer. Mario and son, Ulisses (who is present for the visit) respond well and show signs of being comforted. THey voice theri appreciation.
--- NOTE | 2022-03-21 13:19 | NUR ---
DISCHARGE SUMMARY 86-YEAR-OLD MALE, A&O XSELF AND FAMILY, DISCHARGED TO FURTHER CARE ON HOSPICE VIA AMBJULANCE TRANSPORT AT 1200 HOURS. IV ACCESS WAS DISCONTINUED WITH NO UNTOWARD EVENT, PTN TOLERATED WELL. PTN SON PRESENT MOST OF TIME AND PRESENT AT PTN DISCHARGE. WELL, AND OTHER FAMILY MEMBERS WERE HIS SUPPORT AND PRESENT.
== END 2022-03-21 12:10 | disposition hospice, home (50) | DRG 871 ==
LOC: ER 12:29 → MEDS 14:26
PROVIDERS: Emergency Medicine; Internal Medicine Critical Care Medicine; ADMIT Family Medicine
PROC: 3E03329 Introduction of Other Anti-infective into Peripheral Vein, Percutaneous Approach (ICD-10-PCS; 2022-03-16)
PROC: 0W993ZZ Drainage of Right Pleural Cavity, Percutaneous Approach (ICD-10-PCS; principal; 2022-03-18)
DX: A41.9 Sepsis, unspecified organism (principal); J18.9 Pneumonia, unspecified organism; C34.91 Malignant neoplasm of unspecified part of right bronchus or lung; J91.0 Malignant pleural effusion; N17.9 Acute kidney failure, unspecified; E44.0 Moderate protein-calorie malnutrition; M48.56XA Collapsed vertebra, not elsewhere classified, lumbar region, initial encounter for fracture; E83.52 Hypercalcemia; R65.20 Severe sepsis without septic shock; Z51.5 Encounter for palliative care; Z66 Do not resuscitate; R62.7 Adult failure to thrive; Z20.822 Contact with and (suspected) exposure to COVID-19; R91.8 Other nonspecific abnormal finding of lung field; K21.9 Gastro-esophageal reflux disease without esophagitis; D63.0 Anemia in neoplastic disease; N40.0 Benign prostatic hyperplasia without lower urinary tract symptoms; E16.2 Hypoglycemia, unspecified; Z99.81 Dependence on supplemental oxygen; Z87.81 Personal history of (healed) traumatic fracture; Z79.899 Other long term (current) drug therapy; Z90.89 Acquired absence of other organs; Z88.0 Allergy status to penicillin; Z90.49 Acquired absence of other specified parts of digestive tract; Z87.891 Personal history of nicotine dependence; Z91.048 Other nonmedicinal substance allergy status; Z85.72 Personal history of non-Hodgkin lymphomas; Z98.890 Other specified postprocedural states
CPT/HCPCS: 32555; 36415; 71045; 80048; 80053; 80069; 80202; 82306; 82330; 82945; 82947; 83605; 83615; 83735; 83970; 83986; 84100; 84157; 85025; 85610; 87040; 87070; 87205; 87449; 88108; 88305; 88341; 88342; 89051; 93005; 93010; 94640; 94664; 94760; 96374; 96375; 99285-25; A9270; J0456; J0630; J0692; J0696; J1650; J3370; J7030; J7050; U0004